=== PATIENT | female | born 1990 | race Caucasian/White ===

== ENCOUNTER 2022-08-14 13:00 | Inpatient (IN) | payer OTHER ==
[2022-08-14 15:19] VITALS: BMI 26.5
[2022-08-14] MEDS ORDERED: OXYTOCIN 30 UNITS in 0.9% NS 30 UNIT/500 ML INFUS.BAG IVPB ONE (16:19)
[2022-08-14] MEDS ORDERED: CITRIC ACID/SODIUM CITRATE 30 ML UNIT-DOSE CUP PO ONE (16:40)
[2022-08-14] MEDS ORDERED: ELECTROLYTE-148 SOLN 500 ML IV ONE (16:40)
[2022-08-14] MEDS ORDERED: ELECTROLYTE-148 SOLN 1,000 ML IV SCH (16:45)
[2022-08-14] MEDS ORDERED: morphine SULFATE (PF) 1 MG/2 ML SYRINGE ONE (17:01)
[2022-08-14] MEDS ORDERED: ePHEDrine SULFATE 50 MG/1 ML AMPULE ONE (17:23)
[2022-08-14] MEDS ORDERED: ceFAZolin SODIUM 1 GM VIAL ONE (18:10)
[2022-08-14] MEDS ORDERED: ONDANSETRON 4 MG/2 ML VIAL ONE (18:10)
[2022-08-14] MEDS ORDERED: OXYTOCIN 20 UNITS in 0.9% NS 20 UNIT/1,000 ML INFUS.BAG IV ONE (18:20)
[2022-08-14] MEDS: OXYTOCIN 20 UNITS in 0.9% NS 20 UNIT/1,000 ML INFUS.BAG IV SCH (18:20)
[2022-08-14] MEDS ORDERED: ONDANSETRON 4 MG/2 ML VIAL IVPUSH PRN (18:20)
[2022-08-14] MEDS ORDERED: SENNOSIDES/DOCUSATE COMBO (SENNA PLUS) TABLET (UD) PO PRN (18:28)
[2022-08-14] MEDS ORDERED: METHYLERGONOVINE MALEATE 0.2 MG/1 ML AMP IM PRN (18:28)
[2022-08-14] MEDS: SIMETHICONE 80 MG TAB.CHEW (FP) PO PRN (20:13)
[2022-08-15] MEDS: IBUPROFEN 800 MG/8 ML IJ IVPB PRN ×2 (00:01→06:09)
[2022-08-15] MEDS: SIMETHICONE 80 MG TAB.CHEW (FP) PO PRN ×4 (00:02→18:25)
[2022-08-15] MEDS: OXYTOCIN 20 UNITS in 0.9% NS 20 UNIT/1,000 ML INFUS.BAG IV SCH (03:36)
[2022-08-15] MEDS ORDERED: oxyCODONE HCL 5 MG TABLET PO PRN (06:28)
[2022-08-15 08:08] LABS: BASO % 0.4 % (0-2.0); EOS % 0.7 % (0-4.5); HEMATOCRIT 29.1 % (32.4-45.2); HEMOGLOBIN 9.1 GM/dL (10.7-15.3); LYMPH % 12.8 % (8-40); MCH 25.1 pg (25.7-33.7); MCHC 31.3 g/dl (32.0-36.0); MEAN CELL VOLUME 80.1 fl (80-96); MONO % 7.6 % (3.8-10.2); NEUT % 78.5 % (42.8-82.8); PLATELET COUNT 157 10^3/uL (134-434); RBC 3.64 M/mm3 (3.60-5.2); RDW 16.1 % (11.6-15.6)
[2022-08-15] MEDS: PRENATAL VITAMINS W/ FOLIC ACID TABLET (FP) PO SCH (09:57)
[2022-08-15] MEDS ORDERED: FLU VACC QS2022-23(6MOS UP)/PF 60 MCG/0.5 ML SYRINGE IM ONE (10:00)
[2022-08-15] MEDS ORDERED: DIPHTH,PERTUSS(ACELL),TET 0.5 ML DISP.SYRIN IM ONE (10:00)
[2022-08-15 10:44] VITALS: RESP 18
[2022-08-15] MEDS: IBUPROFEN 600 MG TABLET (FP) PO PRN ×2 (10:55→18:25)
[2022-08-15] MEDS: ACETAMINOPHEN 325 MG TABLET (FP) PO PRN (12:40)
[2022-08-15] MEDS ORDERED: BISACODYL 10 MG SUPP.RECT RC PRN (18:28)
[2022-08-15] MEDS: oxyCODONE HCL 5 MG TABLET PO PRN (20:19)
[2022-08-16] MEDS: IBUPROFEN 600 MG TABLET (FP) PO PRN ×4 (01:05→23:13)
[2022-08-16] MEDS: SIMETHICONE 80 MG TAB.CHEW (FP) PO PRN ×4 (01:05→20:12)
[2022-08-16] MEDS: oxyCODONE HCL 5 MG TABLET PO PRN ×3 (08:37→20:13)
[2022-08-16] MEDS: PRENATAL VITAMINS W/ FOLIC ACID TABLET (FP) PO SCH (10:11)
[2022-08-16] MEDS: ACETAMINOPHEN 325 MG TABLET (FP) PO PRN (15:06)
[2022-08-17] MEDS: IBUPROFEN 600 MG TABLET (FP) PO PRN (06:13)
[2022-08-17] MEDS: SIMETHICONE 80 MG TAB.CHEW (FP) PO PRN (06:13)
[2022-08-17 08:04] VITALS: BP 124/71; PULSE 78; TEMP 98.3
[2022-08-17] MEDS: oxyCODONE HCL 5 MG TABLET PO PRN (09:37)
[2022-08-17] MEDS: PRENATAL VITAMINS W/ FOLIC ACID TABLET (FP) PO SCH (09:38)
[2022-08-17] MEDS: ACETAMINOPHEN 325 MG TABLET (FP) PO PRN (12:12)
== END 2022-08-17 13:06 | disposition home or self-care (01) | DRG 540 ==
LOC: JLDR 13:00 → J3W 20:02
PROVIDERS: ADMIT Obstetrics & Gynecology; ATTEND Obstetrics & Gynecology
PROC: 10D00Z1 Extraction of Products of Conception, Low, Open Approach (ICD-10-PCS; principal; 2022-08-14)
DX: O34.211 Maternal care for low transverse scar from previous cesarean delivery (principal); O26.62 Liver and biliary tract disorders in childbirth; K83.1 Obstruction of bile duct; Z3A.39 39 weeks gestation of pregnancy; Z37.0 Single live birth
CPT/HCPCS: 36415; 85025; 88307-TC; 90715; G0008; Q2036